=== PATIENT | male | born 1970 | race Caucasian/White ===

== ENCOUNTER 2021-02-07 05:03 | Observation (INO) ==
[2021-02-07] MEDS ORDERED: cefOXitin 2,000 MG/60 ML BAG IV STA (06:53)
--- NOTE | 2021-02-07 06:53 | Surgery Consultation ---
Date of Consultation February 07, 2021 Assessment & Plan (1) Acute appendicitis: pt is a 50 year-old male who present with acute abdominal pain, IMP: acute appendicitis, pLan, I recommend to do laparoscopic appendectomy, possible open, D/W benefits, risks and alternatives of the surgery, the risks - infection, bleeding, abscess, injury other organs, bowel obstruction, DVT, AR, stroke, , pt understood, he agrees with surgery, I answered all questions,pre-op antibiotic Present on Admission?: Yes History of Present Illness History of Present Illness CC: acute abdominal pain HPI: pt is a 50 year-old male who presents to [facility] for one day history acute abdominal pain with nausea and vomiting, no call surgeon available at [facility], ER doctor called requested to transfer to here [facility], I accepted pt, I reviewed pt's H/P, labs, CT scan with pt, pt denies fever, no diarrhea, no chest pain, Allergies Allergy/AdvReac Type Severity Reaction Status Date / Time No Known Allergies Allergy Unknown Unverified 11/10/03 19:42 Patient History Social History Smoking Status: Never smoker Feels Safe at Home: Yes Review of Systems Review of Systems: All systems reviewed & are unremarkable except as noted in HPI & below Constitutional: as per Subjective / HPI Eyes: as per Subjective / HPI Ear, Nose, Mouth, Throat: as per Subjective / HPI Respiratory: as per Subjective / HPI Cardiovascular: as per Subjective / HPI Gastrointestinal: as per Subjective / HPI hiatal hernia, GERD, S/P laparos copic cholecystectomy 4 years ago, Genitourinary: + as per Subjective / HPI Musculoskeletal: as per Subjective / HPI Integumentary: as per Subjective / HPI Neurologic: as per Subjective / HPI Psychiatric: as per Subjective / HPI Endocrine: as per Subjective / HPI Hematologic / Lymphatic: as per Subjective / HPI Physical Exam Constitutional: WD/WN, vitals as above well developed and well nourished Eyes: PERRL, conjunctivae normal, anicteric sclerae Neck: trachea midline, no thyromegaly Respiratory: normal respiratory effort, lungs clear to auscultation normal respiratory effort Cardiovascular: RRR, no murmur, no edema Rate/Rhythm: regular rate and regular rhythm Heart Sounds: normal S1 and normal S2 Gastrointestinal (Abdomen): Percussion/Palpation: + abdomen tender and abdomen soft tenderness at RLQ, no rebound pain, no distend, BS + Musculoskeletal: no cyanosis or clubbing, extremities motor strength 5/5 Head/Neck/Chest: neck supple Skin: no rashes, warm and dry Neurologic: awake Psychiatric: A+Ox3, euthymic affect Orientation: alert and oriented x 3 Results & Data ([facility]) Vital Signs (Past 12 Hours) Vital Signs Temp Pulse Pulse Resp BP BP Pulse Ox 02/07/21 06:27 61 16 126/85 98 02/07/21 05:09 36.6 C 78 20 148/92 H 97
--- NOTE | 2021-02-07 06:53 | History & Physical Bridge Note ---
Date of Service February 07, 2021 History & Physical Bridge Note I have examined the patient, reviewed the History & Physical and in the interval since the performance of the History & Physical I have noted the following changes of clinical significance: no changes noted
[2021-02-07] MEDS ORDERED: ROCURONIUM BROMIDE 10 MG/ML 5 ML VIAL IV ONE (07:35)
[2021-02-07] MEDS ORDERED: LIDOCAINE 2% 2 ML VIAL/AMP(20MG/ML) INFIL ONE (07:35)
[2021-02-07] MEDS ORDERED: PROPOFOL IV EMULSION 10 MG/ML 20 ML VIAL IV ONE (07:35)
[2021-02-07] MEDS ORDERED: MIDAZOLAM HCL 1 MG/ML 2ML VIAL ONE (07:37)
[2021-02-07] MEDS ORDERED: fentaNYL citrate 100 MCG/2 ML VIAL ONE ×2 (07:37→09:05)
[2021-02-07] MEDS ORDERED: BACITRACIN OINT 15 GM TUBE ONE (08:09)
[2021-02-07] MEDS ORDERED: LIDOCAINE 1% LOCAL 20 ML VIAL ONE (08:09)
[2021-02-07] MEDS ORDERED: BUPIVACAINE 0.5 % 5 MG/1 ML MPF 30ML VIAL ONE (08:09)
[2021-02-07] MEDS ORDERED: ePHEDrine sulfate 50 MG/ML AMP IV PRN (08:22)
[2021-02-07] MEDS ORDERED: fentaNYL citrate 100 MCG/2 ML VIAL IV PRN (08:22)
[2021-02-07] MEDS ORDERED: ONDANSETRON INJ 2 MG/ML 2 ML VIAL IV PRN (08:22)
[2021-02-07] MEDS ORDERED: ATROPINE SULFATE 0.1 MG/ML 10ML SYR IV PRN (08:22)
[2021-02-07] MEDS ORDERED: PROMETHAZINE HCL 6.25 MG in SODIUM CHLORIDE 0.9% 50 ML IV PRN (08:22)
[2021-02-07] MEDS ORDERED: HYDROmorphone INJ 2 MG/ML SYR/VIAL IV PRN (08:22)
--- NOTE | 2021-02-07 08:22 | Anesthesiology Consultation ---
Date of Service February 07, 2021 Assessment & Plan (1) Encounter for pre-operative examination: Chart Review Chart Review: Acceptable Risk for Surgery and Patient NOT seen in Pre Admission Testing Consults Requested none ASA ASA2E Proposed Anesthesia Anesthesia Type: General Risk / Benefits Reviewed With: PT / POA / Parent / Guardian, Accepts Plan and I nformed Consent Obtained History Surgery Operation Date: 02/07/21 09:40 Proposed Procedures p Laparoscopic Appendectomy - Federica Guerrero MD Height/Weight Height: 6 ft 2 in Weight: 98.8 kg Allergies Allergy/AdvReac Type Severity Reaction Status Date / Time No Known Allergies Allergy Unknown Unverified 11/10/03 19:42 Medications Home Medications Medication Instructions Recorded Confirmed Last Taken dexlansoprazole [Dexilant] 60 mg PO BID 02/07/21 02/07/21 02/06/21 NPO Date Last Intake of Fluids: 02/07/21 Time Last Intake of Fluids: 00:00 Date Last Intake of Solids: 02/06/21 Time Last Intake of Solids: 14:00 Exercise / Class Metabolic Activity II 4-5 Yardwork/Stairs/Walk up hill Past Anesthesia History No Hx of Anesthesia Complications and No Family Hx of Anesthesia Complications History of PONV No Hx of PONV and No Hx of Motion Sickness Social History Smoking Status: Never smoker Physical Exam Vital Signs Last Vital Signs Temp 36.6 C 02/07/21 07:57 Pulse 71 02/07/21 07:57 Resp 20 02/07/21 07:57 BP 126/94 02/07/21 07:57 Pulse Ox 98 02/07/21 07:57 ENMT Mouth: no dentition abnormality Thyromental Distance: > or= 3.5 Finger Breadths Mallampati Class: II Neck normal visual inspection Respiratory normal respiratory effort Auscultation: lungs clear to auscultation bilaterally Cardiovascular Rate/Rhythm: regular rate and regular rhythm Psychiatric Orientation: alert Lab Results Anesthesia Preop Results Results Anesthesia Widget: COVID-19 PCR NEGATIVE (Negative) 02/07/21
[2021-02-07] MEDS ORDERED: KETAMINE 50 MG/5 ML SYRINGE ONE ×2 (08:45→10:18)
[2021-02-07] MEDS ORDERED: HYDROmorphone INJ 1 MG/ML SYRINGE ONE (08:45)
[2021-02-07] MEDS ORDERED: SUCCINYLCHOLINE CHLORIDE 20 MG/ML 10 ML VIAL IV ONE (08:45)
[2021-02-07] MEDS ORDERED: ONDANSETRON INJ 2 MG/ML 2 ML VIAL ONE (09:01)
[2021-02-07] MEDS ORDERED: GLYCOPYRROLATE 0.2 MG/ML VIAL ONE (09:01)
[2021-02-07] MEDS ORDERED: NEOSTIGMINE METHYLSULFATE 1 MG/ML 10ML VIAL ONE (09:01)
--- NOTE | 2021-02-07 09:24 | Post Operative Brief Note ---
Immediate Post Op Note v1 Date of Surgery February 07, 2021 Pre & Post Diagnosis Operation Date: 02/07/21 09:40 Pre-Op Diagnosis: acute Appendicitis Post-Op Diagnosis: acute Appendicitis I identified the patient and participated in the time-out.: Yes Procedure Operation Date: 02/07/21 09:40 Actual Procedures p Laparoscopic Appendectomy - Federica Guerrero MD Surgeon Federica Guerrero MD Rubber Press Operator HIEN Fuentes Estimated Blood Loss 10 Findings Consistent with Post-Op Diagnosis Fluids 700ml Specimens appendix Anesthesia Type General Complications none Disposition Accompanied Patient To Recovery: No Disposition: Recovery Room Overlapping Procedure I was immediately available: during the entire case.
[2021-02-07] MEDS ORDERED: HYDROmorphone INJ 1 MG/ML SYRINGE IV PRN (10:54)
[2021-02-07] MEDS ORDERED: oxyCODONE/ACETAMINOPHEN 5mg/325mg TAB PO PRN (10:54)
[2021-02-07] MEDS ORDERED: ACETAMINOPHEN 325 MG TAB PO PRN (10:54)
[2021-02-07] MEDS: LACTATED RINGER'S 1,000 ML IV SCH ×2 (11:13→16:09)
--- NOTE | 2021-02-07 11:21 | Anesthesiology Progress Note ---
Date of Service February 07, 2021 Anesthesia Post Procedure Vital Signs Vital Signs: Temp Pulse Pulse Pulse Resp BP BP 02/07/21 10:45 49 L 14 02/07/21 10:35 48 L 14 02/07/21 10:25 48 L 16 02/07/21 10:15 36.3 C L 66 16 02/07/21 10:05 63 14 02/07/21 09:55 51 L 14 02/07/21 09:46 36.1 C L 51 L 12 02/07/21 07:57 36.6 C 71 20 02/07/21 06:27 61 16 126/85 02/07/21 05:09 36.6 C 78 20 148/92 H BP Pulse Ox 02/07/21 10:45 139/80 93 02/07/21 10:35 144/81 H 94 02/07/21 10:25 130/84 95 02/07/21 10:15 125/87 99 02/07/21 10:05 126/79 99 02/07/21 09:55 112/92 99 02/07/21 09:46 135/87 100 02/07/21 07:57 126/94 98 02/07/21 06:27 98 02/07/21 05:09 97 Pain Intensity Right Lower Abdomen: Pain Intensity: 3 Transfer of Care Handoff Completed per policy Notes Mental Status: alert / awake / arousable Patient Amnestic to Procedure: Yes Nausea / Vomiting: adequately controlled Pain: adequately controlled Airway Patency, RR, SpO2: stable & adequate BP & HR: stable & adequate Hydration State: stable & adequate Anesthetic Complications: no major complications apparent
--- NOTE | 2021-02-07 13:07 | Operative Report (OR) ---
DATE OF PROCEDURE: 02/07/2021 PREOPERATIVE DIAGNOSIS: Acute appendicitis. POSTOPERATIVE DIAGNOSIS: Acute appendicitis. PROCEDURE PERFORMED: Laparoscopic appendectomy. SURGEON: Federica Guerrero MD CUSTOMER CARE ASSOCIATE: Mckayla Pate PA-C ANESTHESIA: General. ESTIMATED BLOOD LOSS: About 10 mL. FINDINGS: Acute appendicitis. COMPLICATIONS: None. INDICATIONS FOR THE PROCEDURE: This is a 50-year-old gentleman who presented to ED with 1-day histor y of right lower quadrant pain and the patient had a CT scan diagnosis of acute appendicitis. I perez mmend to do a laparoscopic appendectomy, possible open. I did talk to the patient about benefits, th e risks, and alternatives to the procedure. I indicated the risks may include, but not limited to polo ch as bleeding, infection, abscess, injury to other organs, bowel obstruction, myocardial infarction, DVT, stroke, and even . The patient understands. He signed informed consent and I answered al l questions. DETAILS OF PROCEDURE: After we identified the patient and verified the procedure, we brought in the patient to the OR, put the patient on the supine position on the OR table. The patient received SCDs on bilateral legs to prevent DVT. Also, the patient received 2 grams of cefoxitin IV for prophylact ic antibiotics. The patient received general anesthesia without difficulty. The abdomen was prepped and draped in routine sterile fashion after timeout. I injected local anesthesia by using 1% lidoca ine mixed with 0.5% Marcaine just above umbilicus, opened the fascia, opened the peritoneum under dir ect vision and put the Jemima trocar in, connected to CO2 to create pneumoperitoneum, flow rate at 6 liters per minute, pressure not more at 14 mmHg. Once we get a nice pneumoperitoneum, we put a camer a in, looked around the abdomen. It showed normal findings on the small bowel and large bowel. At t his moment, we could not see appendix. Then we put another two 5 mm trocars on the left lower quadra nt area. We mobilized the cecum and found the patient had appendix located back to the cecum and thi s was significantly enlarged with inflammation. Confirmed the diagnosis of acute appendicitis. We mo bilized the appendiceal by using Harmonic. Rechecked and no active bleeding. Then I used 45 mm Endo -KAILEE staple transection on the base of the appendix. We checked the staple line intact with no leak. Then we removed appendix through the catch bag. Then we reinserted Jemima trocar in and connected to CO2 to create a pneumoperitoneum. We again looked around the abdomen, no active bleeding, no leak from the staple line and we removed all trocars under direct vision. No active bleeding from the tr ocar sites. The pneumoperitoneum was released and closed the umbilical incision fascia layer by usin g 0 Vicryl [id number] x 2, closed subcutaneous layer by using 2-0 Vicryl interrupted and closed the skin by using 4-0 Vicryl continuous running. Closed another two 5 mm trocar sites skin only by u se of 4-0 Vicryl and then we put the dressing on. The patient tolerated the procedure well. All the instruments, needles, and sponge counts were correct x2 at the end of the case. The patient was tra nsferred to recovery room in stable condition. The specimens were sent to pathology. After the proc edure, I did talk to the patient about the OR finding and procedure we did. Also, the patient will b e admitted to the hospital. The sampler first, Mckayla, was necessary for this procedure. Her role was to hold the camera and retraction and exposure. Job ID: [id number]
[2021-02-07] MEDS: PANTOprazole 40 MG TAB PO SCH (21:08)
[2021-02-07] MEDS ORDERED: COUGH DROP (SUGAR FREE) LOZ 24 LOZ/1 BOX BUCCAL PRN (21:35)
[2021-02-08] MEDS: LACTATED RINGER'S 1,000 ML IV SCH (02:55)
[2021-02-08 06:54] LABS: Basophils # (auto) 0.01 K/uL (0-0.2); Basophils % (auto) 0.2 %; Eosinophils # (auto) 0.11 K/uL (0-0.5); Eosinophils % (auto) 1.7 %; Hematocrit (blood only) 40.8 % (42-52); Hemoglobin 13.6 g/dL (14.0-18.0); Immature Granulocytes # (auto) 0.01 K/uL (0.00-0.02); Immature Granulocytes % (auto) 0.2 %; Lymphocytes # (auto) 1.85 K/uL (1.2-3.4); Lymphocytes % (auto) 28.5 %; Mean Corpuscular Hemoglobin 31.1 pg (25-34); Mean Corpuscular Hgb Conc 33.3 g/dL (32-36); Mean Corpuscular Volume 93.2 fL (80-100); Mean Platelet Volume 10.2 fL (7.4-10.4); Monocytes % (auto) 9.2 %; Neutrophils # (auto) 3.91 K/uL (1.4-6.5); Neutrophils % (auto) 60.2 %; Platelet Count 183 K/uL (130-400); RDW Coefficient of Variation 13.6 % (11.5-14.5); RDW Standard Deviation 46.7 fL (36.4-46.3); Red Blood Count 4.38 M/uL (4.7-6.1); White Blood Count 6.49 K/uL (4.8-10.8)
[2021-02-08] MEDS: PANTOprazole 40 MG TAB PO SCH (08:23)
--- NOTE | 2021-02-08 10:36 | Discharge Summary ---
Date of Service February 08, 2021 Admission HPI Per Admitting Provider pt is a 50 year-old male who presents to [facility] for one day history acute abdominal pain with nausea and vomiting, no call surgeon available at [facility], ER doctor called requested to transfer to here [facility], I accepted pt, I reviewed pt's H/P, labs, CT scan with pt, pt denies fever, no diarrhea, no chest pain, Principal Diagnosis acute appendicitis Discharge Exam Constitutional WD/WN, vitals as above no acute distress and not ill appearing Respiratory normal respiratory effort; no respiratory distress and no labored breathing Gastrointestinal (Abdomen) Inspection/Auscultation: abdomen normal to inspection and + abdominal surgical incision (covered with dressings/dry/mild spotting present); abdomen not distended Percussion/Palpation: + abdomen tender (mild at incision sites appropriate postop) and abdomen soft; no guarding and abdomen not rigid Skin no rashes, warm and dry Psychiatric A+Ox3, euthymic affect Discharge Data Allergies Allergy/AdvReac Type Severity Reaction Status Date / Time No Known Allergies Allergy Unknown Unverified 17/04 19:42 Procedures Performed Operation Date: 02/07/21 09:40 Actual Procedures p Laparoscopic Appendectomy - Federica Guerrero MD Hospital Course (1) Acute appendicitis: Patient was taken to operating room for laparoscopic appendectomy by Dr. Guerrero. Patient was found to have acute appendicitis without perforation or abscess. Patient tolerated procedure well and was transferred to recovery then to medical/surgical floor for postoperative care. Diet was adavnced as tolerated, IV Cefoxitin was continued for postop abx, PO Percocet prn pain, and activity as tolerated. POD # 1 vitals stable, afebrile, pain minimal and c ontrolled, tolerated regular diet. Patient was ready for discharge. Total Time Total Time Spent Total Time Spent (In Minutes): 20 Total Time Includes: Examination of the Patient, Discharge Planning and Medication Reconciliation Discharge Plan Discharge Items Patient Disposition: Home - Self-Care Reason For Visit: VOMITING,LOWER ABDOMINAL PAIN Discharge Diagnosis: acute appendicitis Activity: Per Instructions section Non-emergency contact: Surgeon Call non-emergency contact if: you have any medication questions, your pain is not controlled, your pain is worsening, your pain is concerning for you, you have a fever, your temperature is above 101, your wound has increased redness, your wound has increased drainage and your wound pain has increased Follow-up/Referrals: Lilly Waldrop DO [Primary Care Provider] - Diet: Regular Addtl Attending Provider Instructions: Post-Surgical ~Discharge Instructions Activity Recommendations: - lifting limitation: (20 pounds for 4 weeks), - exercise/sex/sports limit: (nonstrenuous for 2 weeks), - driving or machine use limit: (none for 1 week or until pain free and no longer taking narcotic pain medication), - Shower/bathe limit: (may shower beginning Saturday) Diet: - Resume previous diet , advance diet slowly as tolerated SPECIAL CARE INSTRUCTIONS: - May shower on Saturday, sponge bath and wash hair in meantime. On Saturday, may remove outer dressings and shower. Let water run over area and pat dry. - Leave steri strips on for one week and then remove. - Call the surgeon's office with any questions or concerns - - (ex. temperature higher than 101 degrees F, excessive bleeding or pain). MEDICATIONS: - Resume previous medications unless instructed otherwise by your surgeon. - May alternate extra strength Tylenol and Ibuprofen as needed for mild pain -650 mg Tylenol every 6 hours as needed - Ibuprofen 600 mg every 6 hours as needed take with food - Percocet 1 every 4 hours, as needed for moderate to severe pain. - Recommend daily stool softener (Colace, [id number]) while taking narcotic pain medication to prevent constipation. FOLLOW UP VISIT: - If not already scheduled, please call the office to schedule a two week follow-up appointment. Office number Pending Studies at Discharge: Yes Stand-Alone Forms: [facility], [facility], Work/School Release, Smoking Cessation Medications and DC Order Prescriptions: New oxycodone-acetaminophen [Percocet] 5-325 mg tablet 1 tab PO Q6H PRN (Reason: pain) Qty: 5 RF: 0 Continued Dexilant 60 mg capsule,biphase delayed releas 60 mg PO BID RF: 0 Discharge Orders: Discharge Order (Routine); Ordered 02/08/21 Ordered By: Mckayla Brush/Other Patient Handouts: After an Appendectomy, What Is Appendicitis?, Appendectomy Laparoscopic Dc Admission Data Admit Date/Time: 02/07/21 09:37 Attending Provider: Federica Guerrero Admit Provider: Federica Guerrero Primary Care Provider: Lilly Waldrop Other Interventions: Discharge Summary Assessment (RN) Last Done: 02/08/21 10:15
== END 2021-02-08 11:23 | disposition home or self-care (01) | DRG 343 ==
LOC: ED 05:03 → 3N 07:44 → OR 07:44 → INTOOBSV 09:37 → 3N 09:37